=== PATIENT | female | born 1955 | race Caucasian/White ===

== ENCOUNTER 2019-09-29 10:35 | Observation (INO) | payer OTHER ==
[~2019-09-29] VITALS: Ht 167.6 cm; Wt 79.0 kg
[~2019-09-29 10:35] MED LIST: LISI1TAB19 PO; OXYC-307 PO
[2019-09-29] MEDS ORDERED: LACTATED RINGERS 1,000 ML IV SCH (11:26)
[2019-09-29 11:27] VITALS: BP 171/91
[2019-09-29] MEDS ORDERED: FENTANYL PF 250 MCG/5ML ONE (11:59)
[2019-09-29] MEDS ORDERED: MIDAZOLAM 1 MG/ML, 2ML ONE (11:59)
[2019-09-29] MEDS ORDERED: BUPIVACAINE/PF 0.25% ONE (12:50)
[2019-09-29] MEDS ORDERED: INDIGO CARMINE 0.8%, 5ML ONE (12:50)
[2019-09-29] MEDS ORDERED: EPINEPHRINE 1 MG/ML, 1ML ONE (12:50)
[2019-09-29] MEDS ORDERED: FUROSEMIDE 20 MG/2 ML ONE (12:50)
[2019-09-29] MEDS ORDERED: MANNITOL PMX 20% 500 ML ONE (12:50)
[2019-09-29] MEDS ORDERED: THROMBIN 5,000 UNIT VIAL TP ONE (12:50)
[2019-09-29] MEDS ORDERED: DEXAMETHASONE 4 MG/ML, 1ML ONE (13:31)
[2019-09-29] MEDS ORDERED: SUCCINYLCHOLINE 20 MG/ML, 10ML ONE (13:31)
[2019-09-29] MEDS ORDERED: ROCURONIUM 10MG/ML,5ML ONE (13:31)
[2019-09-29] MEDS ORDERED: ONDANSETRON 2MG/ML, 2ML ONE ×2 (13:31→18:23)
[2019-09-29] MEDS ORDERED: PROPOFOL 10 MG/ML, 20ML ONE (13:31)
[2019-09-29] MEDS ORDERED: CEFAZOLIN 1,000 MG ONE (13:31)
[2019-09-29] MEDS ORDERED: ONDANSETRON 2MG/ML, 2ML IVPush PRN (14:30)
[2019-09-29] MEDS ORDERED: OXYcodone 5 MG/5 ML ORAL.SOL UDC PO PRN (14:30)
[2019-09-29] MEDS ORDERED: METOCLOPRAMIDE 5 MG/ML, 2ML IV PRN (14:30)
[2019-09-29] MEDS ORDERED: MEPERIDINE/PF 25MG/0.5ML IVPush PRN (14:30)
[2019-09-29] MEDS ORDERED: LABETALOL 5MG/ML, 20ML IV PRN (14:30)
[2019-09-29] MEDS ORDERED: KETOROLAC 30 MG/1 ML IV PRN (14:30)
[2019-09-29] MEDS ORDERED: ALBUTEROL SULFATE 2.5 MG/3 ML NPPB PRN (14:30)
[2019-09-29] MEDS ORDERED: hydrALAzine 20 MG/ML, 1ML IV PRN (14:30)
[2019-09-29] MEDS ORDERED: LORazepam 2 MG/ML, 1ML ONE (16:47)
[2019-09-29] MEDS ORDERED: FENTANYL PF 100 MCG/2ML ONE (16:47)
[2019-09-29] MEDS: FENTANYL PF 100 MCG/2ML IV PRN ×2 (16:50→17:14)
[2019-09-29] MEDS ORDERED: HYDROmorphone 1 MG/ML, 1ML VIAL ONE (17:04)
[2019-09-29] MEDS: HYDROmorphone 1 MG/ML, 1ML INJ IV PRN ×3 (17:07→17:43)
[2019-09-29] MEDS ORDERED: PROMETHAZINE 25 MG/ML, 1ML ONE (17:10)
[2019-09-29] MEDS: PROMETHAZINE 25 MG/ML, 1ML IV PRN ×2 (17:10→17:45)
[2019-09-29] MEDS ORDERED: LORazepam 2 MG/ML, 1ML IVPush PRN (17:30)
[2019-09-29] MEDS ORDERED: MEPERIDINE/PF 25MG/ML,1ML ONE (18:21)
[2019-09-29 19:00] VITALS: BP 153/89
[2019-09-29] MEDS ORDERED: ONDANSETRON 2MG/ML, 2ML IV PRN (19:30)
[2019-09-29] MEDS ORDERED: TEMAZEPAM 15 MG CAPSULE PO PRN (19:30)
[2019-09-29] MEDS: morphine SULFATE 10 MG/ML, 1ML IV PRN (20:02)
[2019-09-29] MEDS: SODIUM CHLORIDE 0.9% 1,000 ML IV SCH (20:03)
[2019-09-29] MEDS: CEFAZOLIN PMX 1GM/50ML 50 ML IVPB SCH (21:52)
[2019-09-30 00:05] VITALS: BP 159/94
[2019-09-30] MEDS: morphine SULFATE 10 MG/ML, 1ML IV PRN (01:30)
[2019-09-30 05:18] LABS: ANION GAP 5 mmol/L (5-15); CALCIUM 8.6 mg/dL (8.5-10.1); CHLORIDE 107 mmol/L (98-107); CREATININE 0.95 mg/dL (0.55-1.02)
[2019-09-30] MEDS: CEFAZOLIN PMX 1GM/50ML 50 ML IVPB SCH (05:40)
[2019-09-30 08:26] VITALS: BP 149/78
[2019-09-30] MEDS: HYDROCHLOROTHIAZIDE 12.5 MG CAPSULE PO SCH (08:29)
[2019-09-30] MEDS: LISINOPRIL 20 MG TABLET PO SCH (08:30)
[2019-09-30] MEDS: ENOXAPARIN 40 MG/0.4 ML SQ SCH (08:32)
[2019-09-30] MEDS: HYDROcodone/APAP 5/325 TABLET PO PRN ×3 (08:41→21:43)
[2019-09-30] MEDS ORDERED: LORazepam 2 MG/ML, 1ML IVPush PRN (09:00)
[2019-09-30 13:13] VITALS: BP 121/67
[2019-09-30] MEDS: SODIUM CHLORIDE 0.9% 1,000 ML IV SCH ×2 (17:00→21:37)
[2019-09-30 19:17] VITALS: BP 113/70
[2019-10-01 00:33] VITALS: BP 118/70
[2019-10-01] MEDS: HYDROcodone/APAP 5/325 TABLET PO PRN ×2 (04:56→10:57)
[2019-10-01 06:06] LABS: ANION GAP 3 mmol/L (5-15); CHLORIDE 106 mmol/L (98-107); CREATININE 0.92 mg/dL (0.55-1.02)
[2019-10-01 07:27] VITALS: BP 152/77
[2019-10-01] MEDS: LISINOPRIL 20 MG TABLET PO SCH (08:16)
[2019-10-01] MEDS: HYDROCHLOROTHIAZIDE 12.5 MG CAPSULE PO SCH (08:16)
[2019-10-01] MEDS: ENOXAPARIN 40 MG/0.4 ML SQ SCH (08:16)
[2019-10-01] MEDS ORDERED: HYDR-3240 PO (10:53)
[2019-10-01] MEDS ORDERED: FLU VACC QS2019-20 36MOS UP/PF 0.5 ML IM-VACC ONE (11:30)
== END 2019-10-01 13:09 | disposition home or self-care (01) ==
LOC: OUT 10:35 → 4NE 19:03 → OUT 19:11 → 4NE 19:12 → DCLOUNGE 10-01 12:23
PROVIDERS: ADMIT Urology; ATTEND Urology
DX: N28.89 Other specified disorders of kidney and ureter (principal); K66.0 Peritoneal adhesions (postprocedural) (postinfection); Z23 Encounter for immunization
CPT/HCPCS: 36415; 44180; 50543; 80048; 85014; 85018; 88305; 90471; 90686; 93005; 96365; 96366; 96372; 96375; 96376; C1729; C1760; G0378; J0171; J0330; J0690; J1100; J1170; J1650; J1940; J2060; J2175; J2250; J2270; J2405; J2550; J2704; J3010; J3490; J7030; J7120; S2900